=== PATIENT | female | born 1995 | race Hispanic/Latino ===

== ENCOUNTER 2018-03-18 17:15 | Emergency (ER) | payer OTHER, SELFPAY ==
[2018-03-18 18:09] LABS: Bilirubin Negative (Negative); Blood, Urine Trace (Negative); Clarity CLOUDY (Clear); Glucose, Urine (Dipstick) Negative (Negative); Leukocyte Moderate (Negative); Nitrite Negative (Negative); Protein, Urine (Dipstick) Trace mg/dL (Neg-Trace); Specific Gravity, Urine 1.033 (1.002-1.036); pH, Urine 7.5 (5.0-9.0)
[2018-03-18 18:12] LABS: Bacteria/HPF Rare-Few HPF (None Seen); Hyaline Casts/LPF 0-3 HYALINE CAST LPF (0-3 Hyaline); Squamous Epithelial 0-3 HPF (0-3); WBC/HPF 21-50 HPF (0-3)
[2018-03-18 18:13] LABS: Pregnancy Test - Urine (BHCG) Negative (Negative); Pregu Control Background? CLEAR/WHITE (CLR/WHITE); Pregu Control Bar Appear? YES (CONTROL BAR); Specific Gravity 1.033 (1.002-1.036)
== END 2018-03-18 19:38 | disposition home or self-care (01) ==
LOC: ERS 17:15
DX: N39.0 Urinary tract infection, site not specified (principal); F17.210 Nicotine dependence, cigarettes, uncomplicated; Z79.891 Long term (current) use of opiate analgesic
CPT/HCPCS: 81003; 81015; 81025; 99284

== ENCOUNTER 2018-06-17 12:55 | Emergency (ER) | payer OTHER ==
[2018-06-17] MEDS ORDERED: Ketorolac Tromethamine 60 MG/2 ML VIAL ONE (14:06)
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
== END 2018-06-17 15:09 | disposition home or self-care (01) ==
LOC: ERS 12:55
DX: M54.2 Cervicalgia (principal); R07.81 Pleurodynia; M54.5 Low back pain; F17.210 Nicotine dependence, cigarettes, uncomplicated; V43.52XA Car driver injured in collision with other type car in traffic accident, initial encounter
CPT/HCPCS: 72072; 72100; 72125; 96372; J1885

== ENCOUNTER 2018-06-27 16:21 | Emergency (ER) | payer SELFPAY ==
[2018-06-27] MEDS ORDERED: Ketorolac Tromethamine 60 MG/2 ML VIAL ONE (16:33)
[2018-06-27 16:48] LABS: Bilirubin Negative (Negative); Blood, Urine Small (Negative); Clarity Cloudy (Clear); Glucose, Urine (Dipstick) Negative (Negative); Leukocyte Small (Negative); Nitrite Negative (Negative); Protein, Urine (Dipstick) Negative (Neg-Trace); Specific Gravity, Urine 1.015 (1.005-1.030); Urobilinogen 0.2 mg/dL (0.2-1.0); pH, Urine 8.5 (5.0-9.0)
[2018-06-27 16:55] LABS: Bacteria/HPF 1+ HPF (None Seen); RBC/HPF 0-3 HPF (0-3)
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
== END 2018-06-27 17:07 | disposition home or self-care (01) ==
LOC: SCSER 16:21
DX: S30.0XXA Contusion of lower back and pelvis, initial encounter (principal); F17.210 Nicotine dependence, cigarettes, uncomplicated; V80.010A Animal-rider injured by fall from or being thrown from horse in noncollision accident, initial encounter
CPT/HCPCS: 72100; 81003; 81015; 96372; J1885

== ENCOUNTER 2019-07-31 14:57 | Emergency (ER) | payer SELFPAY ==
--- NOTE | 2019-07-31 16:34 | RAD ---
EXAM: Two views chest PROVIDED CLINICAL HISTORY: Cough and fever. COMPARISON: 06/17/2018 FINDINGS: Cardiac silhouette and pulmonary vasculature are within normal limits. Nodular density projects over the right lung base which has appearance most suggestive of a nipple shadow. This is stable when compared to prior study on 06/17/2018. The lungs are otherwise clear. The osseous structures have a n ormal appearance. IMPRESSION: No acute cardiopulmonary process.
== END 2019-07-31 17:00 | disposition home or self-care (01) ==
LOC: ERS 14:57
DX: J20.9 Acute bronchitis, unspecified (principal); J45.909 Unspecified asthma, uncomplicated; F17.210 Nicotine dependence, cigarettes, uncomplicated
CPT/HCPCS: 71046; 87804

== ENCOUNTER 2024-06-18 18:39 | Emergency (ER) | payer SELFPAY ==
[2024-06-18 20:04] LABS: #Basophils 0.06 10x3/uL (0.0-0.2); %Basophils 0.4 % (0.0-1.0); %Eosinophils 0.6 % (0.0-10.0); %Lymphocytes 19.2 % (21.0-51.0); %Neutrophils 71.2 % (42.0-75.0); Hematocrit 39.6 % (36.0-47.0); Hemoglobin 13.3 g/dL (12.0-16.0); Mean Corpuscular HGB CONC 33.6 g/dL (32.0-36.0); Mean Corpuscular Hemoglobin 30.6 pg (27.0-31.0); Mean Corpuscular Volume 91.2 fL (78.0-98.0); Mean Platelet Volume 10.2 fL (7.4-10.4); Platelet Count 417 10x3/uL (130-400); RBC Distribution Width 12.7 % (11.5-14.5); Red Blood Cell (RBC) Count 4.34 mill/uL (4.20-5.40)
[2024-06-18 20:17] LABS: BHCG - Serum Negative (NEGATIVE); Pregs Control Background? CLEAR/WHITE (CLR/WHITE); Pregs Control Bar Appear? YES (CONTROL BAR)
[2024-06-18 20:18] LABS: ALT (SGPT) 18 U/L (8-55); AST (SGOT) 24 U/L (5-34); Acetaminophen Less than 10 mcg/mL (Less than 10); Albumin 3.9 g/dL (3.5-5.0); Alcohol Less than 10.0 mg/dL (Less than 10); Alkaline Phosphatase 60 U/L (40-110); Anion Gap 13 mmol/L (10-20); BUN (Urea Nitrogen) 4 mg/dL (7.0-18.7); Bilirubin, Total 0.3 mg/dL (0.2-1.2); Calc. Creatinine Clearance 0 mL/min (70-130); Calcium 9.3 mg/dL (7.8-10.44); Carbon Dioxide 29 mmol/L (22-29); Chloride 102 mmol/L (98-107); Estimated GFR 120; Globulin 3.6 g/dL (2.4-3.5); Glucose 102 mg/dL (70-105); Lipase 27 U/L (8-78); Magnesium 1.5 mg/dL (1.6-2.6); Potassium 3.3 mmol/L (3.5-5.1); Protein, Total 7.5 g/dL (6.0-8.3); Salicylate Less than 8.0 mg/dL (Less than 8.0); Sodium 141 mmol/L (136-145)
[2024-06-18 20:21] LABS: Amphetamine Not Detected (NotDetected); Barbiturates Screen Not Detected (NotDetected); Benzodiazepine Screen Not Detected (NotDetected); Cocaine Metabolite Screen Detected (NotDetected); Methadone Not Detected (NotDetected); Methamphetamine Not Detected (NotDetected); Opiate Screen Not Detected (NotDetected); Oxycodone Screen Not Detected (NotDetected); Phencyclidine (PCP) Not Detected (NotDetected); THC/Cannabinoid Screen Not Detected (NotDetected); Tricyclic Screen Not Detected (NotDetected)
[2024-06-18] MEDS ORDERED: Potassium Chloride 20 MEQ TAB ONE (20:34)
[2024-06-18] MEDS ORDERED: Magnesium 2 GM/50 ML BAG (IN WATER) ONE (20:34)
[2024-06-18 21:27] LABS: Troponin I Less than 0.010 ng/mL (< 0.028)
== END 2024-06-18 22:45 | disposition home or self-care (01) ==
LOC: ERS 18:39
DX: E86.0 Dehydration (principal); F19.10 Other psychoactive substance abuse, uncomplicated; J45.909 Unspecified asthma, uncomplicated; F17.210 Nicotine dependence, cigarettes, uncomplicated; Z55.6 Problems related to health literacy
CPT/HCPCS: 36415; 80053; 80306; 80307; 83605; 83690; 83735; 84145; 84443; 84484; 84703; 85025; 93005; 96361; 96365; J3475

== ENCOUNTER 2025-01-14 15:30 | Emergency (ER) | payer SELFPAY | END 2025-01-14 17:15 | disposition home or self-care (01) | LOC: ERS 15:30 | DX: F41.8 Other specified anxiety disorders (principal); F17.210 Nicotine dependence, cigarettes, uncomplicated | CPT/HCPCS: 99283 ==